=== PATIENT | female | born 1990 | race African-American/Black ===

== ENCOUNTER 2018-12-02 09:08 | Emergency (ER) | payer SELFPAY ==
[2018-12-02] MEDS ORDERED: ONDANSETRON HCL INJ/PF 4 MG/2 ML SDV IV ONE (09:38)
--- NOTE | 2018-12-02 09:39 | ER Document Report ---
ED Medical Screen (RME) - General Chief Complaint: Abdominal Pain Stated Complaint: ABDOMINAL PAIN Time Seen by Provider: 12/02/18 09:35 Mode of Arrival: Ambulatory Information source: Patient Notes: Patient presents complaining of intermittent abdominal cramping off and on for the past 2 weeks. Patient states today the pain started above her umbilicus and radiated to the right upper quadrant and was sharp. Patient reports nausea. Patient states she has had some cloudy urine and urgency. Patient denies any fever. I have greeted and performed a rapid initial assessment of this patient. A comprehensive ED assessment and evaluation of the patient, analysis of test results and completion of the medical decision making process will be conducted by additional ED providers. TRAVEL OUTSIDE OF THE [place] IN LAST 30 DAYS: No - Related Data Allergies/Adverse Reactions: No Known Allergies Allergy (Verified 12/02/18 09:36) Past Medical History Endocrine Medical History: Reports: Hx Hypothyroidism Psychiatric Medical History: Reports: Hx Anxiety Past Surgical History: Reports: Hx Appendectomy - Immunizations Immunizations up to date: Yes Hx Diphtheria, Pertussis, Tetanus Vaccination: Yes Physical Exam - Vital signs Vitals: Temp Pulse Resp BP Pulse Ox 98.9 F 84 18 127/90 H 99 12/02/18 09:12 12/02/18 09:12 12/02/18 09:12 12/02/18 09:12 12/02/18 09:12 - Abdominal Tenderness: Tender - RUQ Course - Vital Signs Vital signs: Temp Pulse Resp BP Pulse Ox 98.9 F 84 18 127/90 H 99 12/02/18 09:12 12/02/18 09:12 12/02/18 09:12 12/02/18 09:12 12/02/18 09:12
[2018-12-02 10:20] LABS: ABSOLUTE BASOPHILS # (AUTO) 0.1 10^3/uL (0.0-0.2); ABSOLUTE EOSINOPHILS # (AUTO) 0.2 10^3/uL (0.0-0.6); ABSOLUTE LYMPHOCYTES (AUTO) 2.3 10^3/uL (0.5-4.7); ABSOLUTE MONOCYTES (AUTO) 0.7 10^3/uL (0.1-1.4); EOSINOPHILS % (AUTO) 2.6 % (0-6); HEMATOCRIT 40.5 % (36.0-47.0); HEMOGLOBIN 13.1 g/dL (12.0-15.5); LYMPHOCYTES % (AUTO) 27.6 % (13-45); MEAN CORPUSCULAR HEMOGLOBIN 27.2 pg (27.0-33.4); MEAN CORPUSCULAR HGB CONC 32.4 g/dL (32.0-36.0); MEAN CORPUSCULAR VOLUME 84 fl (80-97); MONOCYTES % (AUTO) 8.3 % (3-13); PLATELET COUNT 284 10^3/uL (150-450); RED BLOOD COUNT 4.82 10^6/uL (3.72-5.28); RED CELL DISTRIBUTION WIDTH 13.8 % (11.5-14.0); SEGMENTED NEUTROPHILS % (AUTO) 60.5 % (42-78); TOTAL CELLS COUNTED % (AUTO) 100 %; WHITE BLOOD COUNT 8.2 10^3/uL (4.0-10.5)
[2018-12-02 10:48] LABS: ALANINE AMINOTRANSFERASE 19 U/L (9-52); ALBUMIN 4.2 g/dL (3.5-5.0); ALKALINE PHOSPHATASE 64 U/L (38-126); ANION GAP 8 (5-19); ASPARTATE AMINO TRANSFERASE 23 U/L (14-36); BILIRUBIN,DIRECT 0.2 mg/dL (0.0-0.4); BILIRUBIN,TOTAL 0.7 mg/dL (0.2-1.3); BLOOD UREA NITROGEN 9 mg/dL (7-20); CARBON DIOXIDE 30 mmol/L (22-30); CHLORIDE 105 mmol/L (98-107); GLUCOSE 94 mg/dL (75-110); LIPASE 59.9 U/L (23-300); POTASSIUM 4.1 mmol/L (3.6-5.0); SODIUM 142.9 mmol/L (137-145); TOTAL PROTEIN 7.1 g/dL (6.3-8.2)
[2018-12-02 12:02] LABS: APPEARANCE,URINE TURBID; BILIRUBIN,URINE NEGATIVE (NEGATIVE); COLOR,URINE YELLOW; GLUCOSE, URINE NEGATIVE (NEGATIVE); KETONES,URINE NEGATIVE (NEGATIVE); LEUKOCYTE ESTERASE,URINE LARGE (NEGATIVE); NITRITE,URINE NEGATIVE (NEGATIVE); PROTEIN,URINE 100 mg/dL (NEGATIVE); URINE SPECIFIC GRAVITY 1.012; UROBILINOGEN,URINE NEGATIVE mg/dL (<2.0)
--- NOTE | 2018-12-02 12:08 | RADIOLOGY REPORT (SQ) ---
EXAM DESCRIPTION: U/S ABDOMEN LIMITED W/O DOP COMPLETED DATE/TIME: 12/02/2018 11:58 am REASON FOR STUDY: RUQ pain COMPARISON: 08/03/2015 TECHNIQUE: Dynamic and static grayscale images acquired of the abdomen and recorded on PACS. Additio beth selected color Doppler and spectral images recorded. LIMITATIONS: None. FINDINGS: PANCREAS: No masses. Visualized pancreatic duct normal caliber. LIVER: No masses. Echotexture normal. LIVER VASCULATURE: Normal directional flow of the main portal vein and hepatic veins. GALLBLADDER: No stones. Normal wall thickness. No pericholecystic fluid. ULTRASOUND-DETECTED HYATT'S SIGN: Negative. INTRAHEPATIC DUCTS AND COMMON DUCT: CBD and intrahepatic ducts normal caliber. No filling defects. INFERIOR VENA CAVA: Not imaged. AORTA: No aneurysm. RIGHT KIDNEY: Normal size, 11.4 cm. Normal echogenicity. No solid or suspicious masses. No hydroneph rosis. No calcifications. PERITONEAL AND RIGHT PLEURAL SPACE: No ascites or effusions. OTHER: No other significant findings. IMPRESSION: NORMAL RIGHT UPPER QUADRANT ULTRASOUND. TECHNICAL DOCUMENTATION: JOB ID: [id number] [employer]- All Rights Reserved Reading location - IP/workstation name: [email or web address]
--- NOTE | 2018-12-02 12:43 | ER Document Report ---
ED GI/ - General Chief Complaint: Abdominal Pain Stated Complaint: ABDOMINAL PAIN Time Seen by Provider: 12/02/18 09:35 Mode of Arrival: Ambulatory Notes: Patient c/o intermittent abdom cramping for past couple of weeks. Comes and goes. Located mainly suprapubic area and she has had some cloudiy urine. Aslo, urinary frequency. Nauseated but not vomiting. Denies any fever. TRAVEL OUTSIDE OF THE [place] IN LAST 30 DAYS: No - Related Data Allergies/Adverse Reactions: No Known Allergies Allergy (Verified 12/02/18 09:36) Past Medical History - General Information source: Patient - Social History Smoking Status: Never Smoker Chew tobacco use (# tins/day): No Frequency of alcohol use: None Drug Abuse: None Family History: Reviewed & Not Pertinent, Arthritis, CVA, DM, Hypertension Patient has suicidal ideation: No Patient has homicidal ideation: No Endocrine Medical History: Reports: Hx Hypothyroidism Renal/ Medical History: Denies: Hx Peritoneal Dialysis Psychiatric Medical History: Reports: Hx Anxiety Past Surgical History: Reports: Hx Appendectomy - Immunizations Immunizations up to date: Yes Hx Diphtheria, Pertussis, Tetanus Vaccination: Yes Review of Systems - Review of Systems Notes: Review of systems: Constitutional: no fevers Cardiac: no chst pain Respiratory: denies shortness of breath Abdominal: see HPI Genitourinary: See HPI Skin: No rashes EENT: no erythema or exudtes Physical Exam - Vital signs Vitals: Temp Pulse Resp BP Pulse Ox 98.9 F 84 18 127/90 H 99 12/02/18 09:12 12/02/18 09:12 12/02/18 09:12 12/02/18 09:12 12/02/18 09:12 Interpretation: Normal Notes: PHYSICAL EXAMINATION: GENERAL: Well-appearing, no acute distress. VS all normal. HEAD: Atraumatic, normocephalic. NECK: Normal range of motion, supple. LUNGS: Breath sounds clear and equal bilaterally. HEART: Regular rate and rhythm without murmurs heard. ABDOMEN: Soft, mild tenderness all over. No guarding or rebound or masses felt. Course - Re-evaluation Re-evalutation: 12/05/18 00:11 labs all suggest URI. - Vital Signs Vital signs: Temp Pulse Resp BP Pulse Ox 98.3 F 64 16 117/73 100 12/02/18 14:00 12/02/18 14:00 12/02/18 14:00 12/02/18 14:00 12/02/18 14:00 - Laboratory Result Diagrams: 12/02/18 10:05 12/02/18 10:05 Laboratory results interpreted by me: 12/02/18 10:05 Urine Protein 100 H Urine Blood LARGE H Ur Leukocyte Esterase LARGE H Discharge - Discharge Clinical Impression: Abdominal pain, UTI (urinary tract infection) Condition: Stable Disposition: HOME, SELF-CARE Additional Instructions: URINARY TRACT INFECTION: Your evaluation indicates that you have a urinary tract infection. This is due to germs growing in the bladder. This is a common problem. This infection usually responds quickly to antibiotics. Your antibiotic should be taken exactly as prescribed. Drink plenty of fluids -- three to four quarts a day. Occasionally, a bladder anesthetic will be prescribed to help stop the feeling of urgency until the antibiotic has a chance to clear the infection. This may cause your urine to be dark orange. Certain urine infections require a culture. If the doctor obtained a culture, the results will be back in two days. You should call to see if a change in treatment is needed. A repeat urinalysis after you finish treatment is often recommended. The physician will let you know if further testing is required. Call the doctor if you develop fever, chills, flank pain, inability to urinate, or blood in the urine. ANTIBIOTIC THERAPY: You have been given an antibiotic prescription. It's important that you take all the medication, unless instructed otherwise by your physician. Failure to complete the entire course can result in relapse of your condition. Common side effects of antibiotics include nausea, intestinal cramping, or diarrhea. Women may develop vaginal yeast infections, and babies can get yeast (thrush) in the mouth following the use of antibiotics. Contact your physician if you develop significant side effects from this medication. Allergy to this antibiotic can result in hives, wheezing, faintness, or itching. If symptoms of allergy occur, stop the medication and call the doctor. Rocephin You have been given an injection of an antibiotic called Rocephin (ceftriaxone). Sometimes the injection must be combined with antibiotic pills. For some infections, such as an uncomplicated ear infection, Rocephin provides all the antibiotic that's needed. The antibiotic will be in your body for about two days. For serious infections, we usually repeat doses of Rocephin daily. Side effects are very unusual following a shot. Women may develop vaginal yeast infections, and babies can get yeast (thrush) in the mouth following the use of antibiotics. Contact your physician if you have symptoms with this medication. Allergy to this antibiotic can result in hives, wheezing, faintness, or itching. If symptoms of allergy occur, call the doctor at once. CEPHALEXIN: The antibiotic you've been prescribed is a member of the cephalosporin class. This type of antibiotic covers a wide variety of infections, including those of the skin, lungs, and urinary tract. It's useful for staph infections. This antibiotic is slightly similar to the penicillin family. In rare cases, a person who is allergic to penicillin will also be allergic to this med ication. If you have had a severe allergic reaction to penicillin, and have not taken this antibiotic since that time, notify your doctor. Antibiotics which cover many germs ("broad spectrum" antibiotics) are more likely to cause diarrhea or "yeast" infections. Women prone to vaginal yeast pr oblems may suffer an attack after taking this antibiotic. In infants, oral thrush (white spots "stuck" on the cheek) or yeast diaper rash may result. See your doctor if these problems occur. Call at once if you develop itching, hives, shortness of breath, or lightheadedness. Fluconazole Fluconazole (Diflucan) is an antifungal drug. It is useful for serious fungal infections, but is also excellent for oral or vaginal yeast infections. Diflucan interacts with some medicines. This is a concern if you are taking anticoagulants (such as Coumadin), phenytoin (Dilantin), cyclosporin, or oral hypoglycemics (such as tolbutamide, Orinase, glipizide, Glucotrol, glyburide, DiaBeta, Glynase, and Micronase). Be sure the doctor knows if you are taking one of these medicines. We don't know how Diflucan affects . If you are planning to become , discuss this with your doctor. Diflucan has few side effects. Minor side effects may include nausea, headache, or diarrhea. Call the doctor if you develop a skin rash, shortness of breath, or other new symptoms. FOLLOW-UP CARE: If you have been referred to a physician for follow-up care, call the physicians office for an appointment as you were instructed or within the next two days. If you experience worsening or a significant change in your symptoms, notify the physician immediately or return to the Emergency Department at any time for re-evaluation. Prescriptions: Cephalexin Monohydrate [Keflex 500 mg Capsule] 500 mg PO TID 7 Days capsule Fluconazole [Diflucan] 150 mg PO ONCE PRN #1 tablet PRN Reason: Forms: Return to Work
[2018-12-02] MEDS ORDERED: CEFTRIAXONE 1 GM/D5W RTU 1 GM/50 ML RTUPB IV ONE (12:44)
[2018-12-02 14:03] VITALS: BP 117/73
== END 2018-12-02 14:03 | disposition home or self-care (01) ==
LOC: ER 09:08
DX: N39.0 Urinary tract infection, site not specified (principal); R10.30 Lower abdominal pain, unspecified; R10.817 Generalized abdominal tenderness; R35.0 Frequency of micturition; R11.0 Nausea
CPT/HCPCS: 99284; 96375; 96365; 36415; 87086; 83690; 84703; 85025; 87088; 80053; 81001; 87186; 76705; J2405; J0696